=== PATIENT | male | born 1955 | race Caucasian/White ===

== ENCOUNTER 2017-05-24 13:18 | Emergency (ER) | payer OTHER ==
[~2017-05-24] VITALS: Ht 180.3 cm; Wt 69.0 kg
[2017-05-24] MEDS ORDERED: SODIUM CHLORIDE 0.9% 1000ML 1,000 ML IV STA ×3 (13:21→18:12)
[2017-05-24] MEDS ORDERED: ACETAMINOPHEN 500 MG TAB PO STA (13:21)
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
[2017-05-24 13:26] VITALS: Ht 180.3 cm; Wt 69.0 kg
[2017-05-24] MEDS ORDERED: OPTIRAY 320 IV PRN (13:30)
[2017-05-24 13:49] LABS: BASO % 0.1 %; BASO ABS # 0.01 K/uL (0-0.2); HEMATOCRIT 38.6 % (42-52); HEMOGLOBIN 13.5 g/dL (14.0-18.0); IG# 0.03 K/uL (0.00-0.02); LYMPH % 10.3 %; LYMPH ABS # 0.91 K/uL (1.2-3.4); MEAN CELL VOLUME 90.4 fL (80-100); MEAN CORPUSCULAR HEMOGLOBIN 31.6 pg (25-34); MEAN PLATELET VOLUME 10.4 fL (7.4-10.4); MONO % 13.8 %; MONO ABS # 1.22 K/uL (0.11-0.59); NEUT % 75.5 %; NEUT ABS # 6.69 K/uL (1.4-6.5); PLATELET COUNT 154 K/uL (130-400); RED CELL DISTRIBUTION WIDTH SD 42.7 fL (36.4-46.3); WHITE BLOOD COUNT 8.86 K/uL (4.8-10.8)
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
[2017-05-24 13:56] LABS: ISTAT CREATININE 0.8 mg/dl (0.6-1.3); ISTAT IONIZED CALCIUM 1.07 mmol/l (1.12-1.32); ISTAT POTASSIUM 3.8 mEq/L (3.3-5.0)
[2017-05-24 13:58] LABS: INR 1.1 (0.9-1.1)
[2017-05-24 14:08] LABS: ALBUMIN 3.6 gm/dl (3.4-5.0); ALT/SGPT 55 U/L (12-78); BLOOD UREA NITROGEN 15 mg/dl (7-18); CALCIUM 8.4 mg/dl (8.5-10.1); CARBON DIOXIDE 23 mmol/L (21-32); CREATININE 0.91 mg/dl (0.60-1.40); GLUCOSE 114 mg/dl (70-99); POTASSIUM 3.8 mmol/L (3.5-5.1); SODIUM 133 mmol/L (136-145)
[2017-05-24 14:14] LABS: ALKALINE PHOSPHATASE 64 U/L (45-117); AST/SGOT 43 U/L (15-37); CKMB 1.7 ng/ml (0.5-3.6)
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
--- NOTE | 2017-05-24 14:21 | DIAGNOSTIC IMAGING REPORT ---
(CHEST FOR PE) ANGIO WITH CT DOSE: HISTORY: Chest pain. Dyspnea. TECHNIQUE: Multiaxial CT images of the chest were performed following the intravenous administration of contrast to evaluate the pulmonary arteries. Maximal intensity projection images were also obtained. A dose lowering technique was utilized adhering to the principles of ALARA. COMPARISON STUDY: None. FINDINGS: Thoracic aorta is unremarkable. Pulmonary vasculature enhances appropriately. There are no significant filling defects. There is a patchy poorly defined parenchymal infiltrate of the right upper lobe. There is no significant mediastinal or hilar adenopathy. IMPRESSION: 1. No evidence for pulmonary embolus. 2. Faint patchy parenchymal infiltrate right upper lobe. The above report was generated using voice recognition software. It may contain grammatical, syntax or spelling errors. Electronically signed by: Neftali Quintana M.D. 05/24/2017 2:20 PM Dictated Date/Time: 05/24/2017 2:17 PM
[2017-05-24 14:22] LABS: INFLUENZA B ANTIGEN Neg for Influ B (NEG)
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
[2017-05-24] MEDS ORDERED: LEVAQUIN 750MG / 150ML D5W IV STA (14:30)
[2017-05-24] MEDS ORDERED: OSELTAMIVIR PHOSPHATE 75 MG CAP PO STA (14:30)
[2017-05-24 16:35] VITALS: TEMP 36.8
[2017-05-24] MEDS ORDERED: CEFTRIAXONE SOD INJ 1 GM ADDVIAL IV STA (17:10)
[2017-05-24 21:14] VITALS: BP 105/67; PULSE 70; O2SAT 98
== END 2017-05-24 21:15 | disposition short-term general hospital (02) ==
LOC: EDBD 13:18 → C.EDB 13:19
DX: R55 Syncope and collapse (principal); J11.1 Influenza due to unidentified influenza virus with other respiratory manifestations; R41.82 Altered mental status, unspecified; J18.9 Pneumonia, unspecified organism; R27.0 Ataxia, unspecified; V49.9XXA Car occupant (driver) (passenger) injured in unspecified traffic accident, initial encounter

== ENCOUNTER → 2017-05-24 | Outpatient (CLI) | payer OTHER ==
--- NOTE | 2017-05-24 10:47 | DIAGNOSTIC IMAGING REPORT ---
CHEST 2 VIEWS ROUTINE CLINICAL HISTORY: 62 years-old Male presenting with J18.9 community acquired pneumonia. TECHNIQUE: PA and lateral views of the chest were obtained. COMPARISON: None. FINDINGS: Cardiomediastinal silhouette normal. Lungs and pleural spaces clear. Degenerative changes of the thoracic spine. Upper abdomen normal. IMPRESSION: 1. No acute cardiopulmonary disease. Electronically signed by: Kaiser Borges M.D. 05/24/2017 10:45 AM Dictated Date/Time: 05/24/2017 10:45 AM
== END ==
LOC: C.RAD1850 10:30
PROVIDERS: ATTEND Family Medicine
DX: J18.9 Pneumonia, unspecified organism (principal)

== ENCOUNTER 2017-07-10 09:39 | Inpatient (IN) | payer OTHER ==
[2017-07-10] VITALS (7 sets, daily range): BP systolic 105–122; BP diastolic 69–81; PULSE 71–81; TEMP 36.5–36.9; O2SAT 97–100; Ht 180.3 cm; Wt 70.7 kg
[~2017-07-10] VITALS: Ht 180.3 cm; Wt 70.7 kg
[2017-07-10] MEDS ORDERED: ONDANSETRON INJ 2 MG/ML 2 ML VIAL IV STA (09:58)
[2017-07-10] MEDS ORDERED: DIAZEPAM INJ 5 MG/ML 2 ML CARP IV STA (09:58)
[2017-07-10] MEDS ORDERED: SODIUM CHLORIDE 0.9% 1000ML 1,000 ML IV STA (09:58)
[2017-07-10] MEDS ORDERED: MECLIZINE HCL 25 MG TAB PO STA (09:58)
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
[2017-07-10 10:34] LABS: BASO % 0.4 %; BASO ABS # 0.02 K/uL (0-0.2); EOS % 2.1 %; EOS ABS # 0.11 K/uL (0-0.5); HEMATOCRIT 40.2 % (42-52); HEMOGLOBIN 14.2 g/dL (14.0-18.0); LYMPH % 19.5 %; LYMPH ABS # 1.01 K/uL (1.2-3.4); MEAN CELL VOLUME 90.1 fL (80-100); MEAN CORPUSCULAR HEMOGLOBIN 31.8 pg (25-34); MEAN CORPUSCULAR HGB CONC 35.3 g/dl (32-36); MEAN PLATELET VOLUME 10.3 fL (7.4-10.4); MONO % 6.6 %; MONO ABS # 0.34 K/uL (0.11-0.59); NEUT % 71.4 %; PLATELET COUNT 200 K/uL (130-400); RED CELL DISTRIBUTION WIDTH CV 13.1 % (11.5-14.5); RED CELL DISTRIBUTION WIDTH SD 42.8 fL (36.4-46.3); WHITE BLOOD COUNT 5.18 K/uL (4.8-10.8)
[2017-07-10 10:56] LABS: ALBUMIN 3.7 gm/dl (3.4-5.0); CALCIUM 8.5 mg/dl (8.5-10.1); CREATININE 0.64 mg/dl (0.60-1.40); POTASSIUM 4.3 mmol/L (3.5-5.1)
--- NOTE | 2017-07-10 11:04 | DIAGNOSTIC IMAGING REPORT ---
CHEST ONE VIEW PORTABLE CLINICAL HISTORY: Atrial fibrillation. Dizziness. COMPARISON STUDY: Chest radiograph and chest CT May 24, 2017. FINDINGS: Lung volumes are normal. No pneumothorax or pleural effusion is noted. There is no evidence for pulmonary edema. Cardiomediastinal silhouette is normal. Appearance of the chest is unchanged. IMPRESSION: No acute cardiopulmonary findings. Electronically signed by: Nicholas Aquino M.D. 07/10/2017 11:02 AM Dictated Date/Time: 07/10/2017 11:02 AM
[2017-07-10 11:06] LABS: TOTAL PROTEIN 6.8 gm/dl (6.4-8.2)
--- NOTE | 2017-07-10 11:33 | DIAGNOSTIC IMAGING REPORT ---
CT HEAD WITHOUT CONTRAST (CT) CLINICAL HISTORY: Dizziness, nausea, vomiting. COMPARISON STUDY: 05/24/2017 TECHNIQUE: Axial CT of the brain is performed from the vertex to the skull base. IV contrast was not administered for this examination. A dose lowering technique was utilized adhering to the principles of ALARA. CT DOSE: 614.27 mGy.cm FINDINGS: No intra or extra-axial mass lesions are visualized. There is no CT evidence of acute cortical infarction. There is no evidence of midline shift. There is no acute hemorrhage. No calvarial fractures are visualized. There is no evidence of pathologic ventricular dilatation. There is no evidence of acute sinusitis IMPRESSION: No acute intracranial findings Electronically signed by: Brant Bowie M.D. 07/10/2017 11:31 AM Dictated Date/Time: 07/10/2017 11:30 AM
[2017-07-10] MEDS ORDERED: POLYETHYLENE (MIRALAX) 17 GM PACK PO PRN (12:15)
[2017-07-10] MEDS ORDERED: ACETAMINOPHEN 325 MG TAB PO PRN (12:15)
[2017-07-10] MEDS ORDERED: MoRPHine SULFATE 2 MG/ML CARP IV PRN (12:15)
[2017-07-10] MEDS ORDERED: MAGNESIUM HYDROXIDE SUSP 30 ML UDC PO PRN (12:15)
[2017-07-10] MEDS ORDERED: ALUMINUM/MAGNESIUM/SIMETH (MAALOX MAX) 30 ML UDC PO PRN (12:15)
[2017-07-10] MEDS ORDERED: ONDANSETRON INJ 2 MG/ML 2 ML VIAL IV PRN (12:15)
[2017-07-10] MEDS ORDERED: D5W AND NSS 1,000 ML IV SCH (12:30)
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
[2017-07-10] MEDS: ASPIRIN/ALUM/MAGNES/CAL CARB 325 MG TAB PO SCH (13:00)
[2017-07-10] MEDS: ENOXAPARIN 40 MG/0.4 ML SYR SC SCH (14:50)
[2017-07-10] MEDS ORDERED: IV FLUIDS COMPLETED PRN (15:15)
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
[2017-07-10] MEDS ORDERED: GADAVIST IV PRN (16:00)
--- NOTE | 2017-07-10 16:28 | DIAGNOSTIC IMAGING REPORT ---
Brain MRI WITH AND WITHOUT CONTRAST HISTORY: persistent vertigo TECHNIQUE: Multiplanar multisequence MRI of the brain was performed both before and after the intravenous administration of contrast. COMPARISON STUDY: Head CT 07/10/2017. FINDINGS: There are no areas of restricted diffusion to suggest acute infarction. The midline structures are intact. The paranasal sinuses are clear. The mastoid air cells are clear. The ventricles and sulci are within normal limits for age. There is no mass, hematoma, midline shift. There are few scattered punctate foci of T2 hyperintensity within the white matter of the supratentorial brain. These are nonspecific but favor minimal microvascular ischemic change. The major vascular flow-voids at the skull base are well maintained. Postcontrast sequences show no areas of abnormal enhancement. IMPRESSION: No acute intracranial abnormality. There are few scattered punctate foci of T2 hyperintensity within the white matter of the supratentorial brain. These are nonspecific but favor minimal microvascular ischemic change. Electronically signed by: Sravan Renee M.D. 07/10/2017 4:26 PM Dictated Date/Time: 07/10/2017 4:12 PM
[2017-07-11] VITALS (9 sets, daily range): BP systolic 97–117; BP diastolic 60–83; PULSE 64–108; TEMP 36.4–36.9; O2SAT 96–98
[2017-07-11] MEDS: ASPIRIN/ALUM/MAGNES/CAL CARB 325 MG TAB PO SCH (07:55)
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
--- NOTE | 2017-07-11 09:52 | CARDIOLOGY PROGRESS NOTE ---
DATE: 07/11/2017 SUBJECTIVE: Mr. Simms is resting comfortably in bed without complaints of chest pain, dyspnea, or palpitations. Tolerating a full liquid breakfast. OBJECTIVE: VITAL SIGNS: Blood pressure 106/74 with an irregular pulse of 100. Respiratory rate is 18. The patient is afebrile at 36.8 degrees centigrade. Saturations 97% on room air. NECK: Supple with full carotid upstrokes. No carotid bruits. Jugular venous pressure is flat at 90 degrees. No thyromegaly. CARDIOVASCULAR: Reveals an irregular rhythm with distant heart sounds. No obvious murmurs. LUNGS: Clear without rales, rhonchi or wheeze. ABDOMEN: Soft, nontender without bruits. EXTREMITIES: Reveal intact radial artery pulses bilaterally. There is no peripheral edema. 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 IMPRESSION AND PLAN: New onset atrial fibrillation -- ventricular response now somewhat elevated. Would recommend metoprolol tartrate 25 mg b.i.d. No anticoagulation as his SHORTY score is 0. We will be happy to see the patient in the outpatient setting.
[2017-07-11] MEDS ORDERED: METOPROLOL TARTRATE 25 MG TAB PO SCH (10:45)
--- NOTE | 2017-07-11 12:35 | ECHOCARDIOGRAM REPORT ---
*NOTICE TO RECEIVING [employer] AGENCY This information is strictly Confidential and protected under [place] law. [place] law prohibits you from making any further disclosure of this information unless further disclosure is expressly permitted by the written consent of the person to whom it pertains or is authorized by law. A general authorization for the release of medical or other information is not sufficient for this purpose. Hospital accepts no responsibility if the information is made available to any other person, INCLUDING THE PATIENT. Interpretation Summary * Name: JORDAN MENG Study Date: 07/11/2017 10:42 AM BP: 106/74 mmHg * Patient Location: [facility]\S\[id number]\S\[id number] HR: 101 * : 1955 (M/d/yyyy) Gender: Male Height: 71 in * Age: 62 yrs Ethnicity: [place] Weight: 163 lb * Ordering Physician: Clovis Pederson * Referring Physician: Self, Referred * Performed By: Estefani Cassidy RCS * * Reason For Study: A-FIB * BSA: 1.9 m2 * -- Conclusions -- * 1. Normal left ventricular size with low-normal systolic function. EF 50-55%. No regional wall motion abnormalities. Mild concentric left ventricular hypertrophy. * 2. No significant valvular abnormalities visualized. * 3. Normal estimated right ventricular systolic pressure. * 4. Atrial fibrillation. * 5. No prior study available for comparison. Procedure Details * A complete two-dimensional transthoracic echocardiogram was performed (2D, M-mode, Doppler and color flow Doppler). Left Ventricle * Normal left ventricular size with low-normal systolic function. EF 50-55%. No regional wall motion abnormalities. Mild concentric left ventricular hypertrophy. Right Ventricle * The right ventricle is grossly normal size. * The right ventricular systolic function is normal as assessed by tricuspid annular plane systolic excursion (TAPSE) (normal >1.5 cm). Atria * The left atrial size is normal. * Right atrial size is normal. * There is no evidence of atrial septal defect, but resolution does not allow assessment for a patent foramen ovale. Mitral Valve * The mitral valve is grossly normal. * There is no mitral valve stenosis. * There is trace mitral regurgitation. Tricuspid Valve * The tricuspid valve is not well visualized, but is grossly normal. * There is no tricuspid stenosis. * There is mild tricuspid regurgitation. Aortic Valve * The aortic valve is trileaflet. * No hemodynamically significant valvular aortic stenosis. * No aortic regurgitation is present. Pulmonic Valve * The pulmonary valve is inadequately visualized, but the Doppler data is adequate for interpretation. * There is no pulmonic valvular stenosis. * There is no significant pulmonary regurgitation. Great Vessels * The aortic root is normal size. * Ascending aorta of normal dimension Pericardium/Pleural * Trace pericardial effusion. Great Vessels * Normal IVC size with reduced inspiratory collapse. MMode 2D Measurements and Calculations IVSd 1.2 cm IVSs 1.6 cm LVIDd 3.9 cm LVIDs 2.8 cm LVPWd 1.2 cm LVPWs 1.3 cm IVS/LVPW 0.99 FS 28.6 % EDV(Teich) 65.8 ml ESV(Teich) 29.1 ml EF(Teich) 55.8 % EDV(cubed) 59.2 ml ESV(cubed) 21.5 ml EF(cubed) 63.7 % % IVS thick 36.7 % % LVPW thick 6.0 % LV mass(C)d 159.6 grams LV mass(C)dI 82.6 grams/m\S\2 LV mass(C)s 136.5 grams LV mass(C)sI 70.6 grams/m\S\2 SV(Teich) 36.7 ml SI(Teich) 19.0 ml/m\S\2 SV(cubed) 37.7 ml SI(cubed) 19.5 ml/m\S\2 Ao root diam 3.8 cm Ao root area 11.3 cm\S\2 ACS 2.3 cm LA dimension 2.4 cm asc Aorta Diam 3.3 cm LA/Ao 0.65 LVOT diam 2.1 cm LVOT area 3.3 cm\S\2 LVAd ap4 26.2 cm\S\2 LVLd ap4 7.1 cm EDV(MOD-sp4) 78.0 ml EDV(sp4-el) 81.9 ml LVAs ap4 16.0 cm\S\2 LVLs ap4 6.2 cm ESV(MOD-sp4) 35.5 ml ESV(sp4-el) 35.3 ml EF(MOD-sp4) 54.5 % EF(sp4-el) 56.9 % LVAd ap2 27.5 cm\S\2 LVLd ap2 7.3 cm EDV(MOD-sp2) 85.3 ml EDV(sp2-el) 87.7 ml LVAs ap2 18.2 cm\S\2 LVLs ap2 6.9 cm ESV(MOD-sp2) 40.7 ml ESV(sp2-el) 40.7 ml EF(MOD-sp2) 52.3 % EF(sp2-el) 53.6 % LVLd %diff 3.0 % EDV(MOD-bp) 80.7 ml LVLs %diff 10.7 % ESV(MOD-bp) 40.4 ml EF(MOD-bp) 49.9 % SV(MOD-sp4) 42.5 ml SI(MOD-sp4) 22.0 ml/m\S\2 SV(MOD-sp2) 44.6 ml SI(MOD-sp2) 23.1 ml/m\S\2 SV(MOD-bp) 40.2 ml SI(MOD-bp) 20.8 ml/m\S\2 SV(sp4-el) 46.6 ml SI(sp4-el) 24.1 ml/m\S\2 SV(sp2-el) 47.1 ml SI(sp2-el) 24.3 ml/m\S\2 Doppler Measurements and Calculations PA V2 max 66.4 cm/sec PA max PG 1.8 mmHg TR max chas 188.1 cm/sec RVSP(TR) 22.2 mmHg RAP systole 8.0 mmHg
[2017-07-11] MEDS ORDERED: ASPI325T60 PO (13:21)
[2017-07-11] MEDS ORDERED: LPR25 PO (13:21)
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
[2017-07-11] MEDS: ENOXAPARIN 40 MG/0.4 ML SYR SC SCH (13:37)
[2017-07-11] MEDS ORDERED: METOPROLOL TARTRATE 25 MG TAB PO ONE (16:30)
[2017-07-11] MEDS: METOPROLOL TARTRATE 25 MG TAB PO SCH (21:25)
[2017-07-12] VITALS (9 sets, daily range): BP systolic 82–113; BP diastolic 54–74; PULSE 51–116; TEMP 36.4–37; O2SAT 95–98
[2017-07-12] MEDS: ASPIRIN/ALUM/MAGNES/CAL CARB 325 MG TAB PO SCH (07:50)
[2017-07-12] MEDS: METOPROLOL TARTRATE 25 MG TAB PO SCH (07:50)
[2017-07-12] MEDS ORDERED: METOPROLOL TARTRATE 25 MG TAB PO ONE (09:30)
--- NOTE | 2017-07-12 12:57 | CARDIOLOGY PROGRESS NOTE ---
DATE: 07/12/2017 SUBJECTIVE: Mr. Simms is resting comfortably in bed without complaints of chest pain, dyspnea, or palpitations. He is anxious for hospital discharge. OBJECTIVE: VITAL SIGNS: Blood pressure 113/67 with an irregular pulse of 80. Respiratory rate is 18. The patient is afebrile at 37.0 degrees Celsius. Saturations 95% on room air. NECK: Supple with full carotid upstrokes. There are no carotid bruits. Jugular venous pressure is flat at 90 degrees. There is no thyromegaly. CARDIOVASCULAR: Reveals a regular rhythm with distant heart sounds. No obvious murmurs. LUNGS: Clear without rales, rhonchi, or wheezes. ABDOMEN: Soft and nontender without bruits. EXTREMITIES: Reveal intact radial artery pulses bilaterally. There is no peripheral edema. DATA: potline monitor notes atrial fibrillation with an elevated ventricular response. IMPRESSION AND PLAN: New onset atrial fibrillation -- agree with increasing metoprolol tartrate to 50 mg b.i.d. Does not require long-term anticoagulation as his CHADS2-VASc score is 0. Will be happy to follow the patient after discharge. SHARDA
--- NOTE | 2017-07-12 13:30 | Hospitalist Progress Note ---
Hospitalist Progress Note Date of Service Jul 12, 2017. (Altagracia Bills PA-C) Subjective Pt evaluation today including: conversation w/ patient, physical exam, chart review, lab review, review of studies Pain: None PO Intake: good Voiding: no voiding problems The patient was seen and examined this morning. Pt reports doing well. He has no symptoms and denies any dizziness or lightheadedness today. He ambulated to the bathroom without difficulty, but HR elevated into the 130s-140s with minimal exertion. He is requesting discharge today because of needing to travel to his father's which is tomorrow morning in [place]. His family plans to [facility]. Additional Comments: Constitutional: No fever, No chills, No sweats Eyes: No redness, No diplopia ENT: No nasal symptoms, No sore throat, No trouble swallowing Respiratory: No shortness of breath, No dyspnea at rest Cardiovascular: No chest pain, No orthopnea, No edema, No palpitations. See HPI Abdomen: No pain, No nausea, No vomiting, No diarrhea, No constipation Musculoskeletal: No joint pain, No muscle pain, No swelling Neurologic: No weakness, No numbness/tingling Psychiatric: No depression symptoms, No anxiety Endo: No fatigue (Altagracia Bills PA-C) Objective Vital Signs Date Time Temp Pulse Resp B/P (MAP) Pulse Ox O2 Delivery O2 Flow Rate FiO2 07/12/17 13:06 116 100/55 (70) 07/12/17 12:00 Room Air 07/12/17 11:06 37.0 87 18 82/55 (64) 95 Room Air 82/54 (63) 07/12/17 10:19 96 92/60 (71) 07/12/17 08:00 Room Air 07/12/17 07:49 71 101/70 (80) 07/12/17 06:59 36.6 83 18 106/74 (85) 97 Room Air 110 108/66 (80) 51 94/65 (75) 07/12/17 04:56 36.7 75 20 113/67 (82) 97 Room Air 74 109/70 (83) 91 99/65 (76) 07/12/17 04:05 Room Air 4/6/18 00:05 Room Air 07/11/17 23:13 36.8 81 18 110/77 (88) 97 Room Air 07/11/17 21:14 64 103/70 (81) 07/11/17 20:00 Room Air 07/11/17 19:47 36.5 94 18 97/67 (77) 96 Room Air 07/11/17 16:20 108 117/83 (94) 07/11/17 16:00 Room Air 07/11/17 15:20 36.9 80 18 112/79 (90) 98 Room Air 07/11/17 13:40 110/75 (87) (Altagracia Bills PA-C) Physical Exam Notes: General Appearance: WD/WN, no apparent distress Eyes: PERRL, EOMI ENT: hearing grossly normal, pharynx normal Neck: supple, no JVD Respiratory/Chest: lungs clear, no respiratory distress, no accessory muscle use Cardiovascular: no murmur, + irregularly irregular (rate controlled w HR around 100s while resting) Abdomen: normal bowel sounds, non tender, soft Extremities: non-tender, no pedal edema, no calf tenderness Neurologic/Psychiatric: alert, normal mood/affect, oriented x 3 Skin: normal color, warm/dry (Altagracia Bills PA-C) Laboratory Results Last 24 Hours Test 07/11/17 18:20 (Altagracia Bills PA-C) Assessment and Plan 62 yo M with New onset Atrial Fibrillation - Dizziness, n/v x 3 days likely due to afib - he denies acute sx at this time. - Cardiology consulted: - CHADs score = 0 - Pt started on asa 325 mg daily, metoprolol tartrate titrated up to 50 mg BID per cardiology - after discussion with cardiology it was decided to load with digoxin 250 mcg IV now. - Anticoagulation not required at this time per Cardiology - Follow up as outpt - Echo ordered today - with low normal EF 50-55%, no WMA or valvular abnormalities. - MRI brain completed: IMPRESSION No acute intracranial abnormality. There are few scattered punctate foci of T2 hyperintensity within the white matter of the supratentorial brain. These are nonspecific but favor minimal microvascular ischemic change. CODE: FULL DVT ppx: Lovenox Disposition: From home, lives with , possible discharge later today (Altagracia Bills, PAGerardoC) Attending Attestation - Pt seen/examined, chart reviewed, care plan d/w PA Karolyn Bills. I agree w/ the chowdhury components of her documentation. Please see my separate note contained in today's d/c summary for more info. Sameer BARRETT MD (Branden Barrett MD)
[2017-07-12] MEDS: ENOXAPARIN 40 MG/0.4 ML SYR SC SCH ×2 (13:38→13:41)
[2017-07-12] MEDS ORDERED: METOPROLOL TARTRATE 50 MG TAB PO SCH ×2 (14:00→21:00)
[2017-07-12] MEDS ORDERED: DIGOXIN IV 250 MCG in SYRINGE 9 ML IV ONE ×2 (15:00→19:00)
[2017-07-12] MEDS ORDERED: METO50TA16 PO (19:38)
[2017-07-12] MEDS ORDERED: LNX25 PO (19:38)
== END 2017-07-12 20:20 | disposition home or self-care (01) | DRG 310 ==
LOC: C.EDB 09:40 → C.2T 12:15 → ENRESERV 12:31 → C.MED 07-11 00:54 → OBSVTOIN 07-11 15:38
PROVIDERS: ADMIT Internal Medicine; ATTEND Internal Medicine
DX: I48.91 Unspecified atrial fibrillation (principal); R42 Dizziness and giddiness; Z79.82 Long term (current) use of aspirin